=== PATIENT | female | born 1970 | race Two or more races ===

== ENCOUNTER → 2017-11-14 | Outpatient (CLI) | payer SELFPAY ==
--- NOTE | 2017-11-14 16:37 | KCIC ---
EXAM: Simultaneous bilateral AC joints DATE: 11/14/2017 12:00 AM INDICATION: Right shoulder pain COMPARISON: No prior FINDING/ IMPRESSION: Bilateral simultaneous AC joints with and without weights are negative for asymmetrical AC joint widening. No distal clavicular elevation or widening of the coracoclavicular distance. No displaced clavicular fractures are seen. 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 This can be further assessed by CT/MRI as clinically indicated. Electronically signed by: Devin Calhoun MD (11/14/2017 4:34 PM) [id number]
== END | disposition home or self-care (01) ==
LOC: KCIC 13:59
DX: M25.511 Pain in right shoulder (principal)
CPT/HCPCS: 73050